=== PATIENT | male | born 1980 | race Caucasian/White ===

== ENCOUNTER 2022-11-24 08:23 | Emergency (ER) | payer BC ==
[~2022-11-24] VITALS: Ht 177.8 cm; Wt 86.2 kg
[2022-11-24 08:31] VITALS: BP 152/95
[2022-11-24] MEDS ORDERED: MORPHINE SULFATE 4 MG/ML SYR IVP ONE (08:45)
[2022-11-24] MEDS ORDERED: NACL 0.9% 1,000 ML IV ONE (08:45)
[2022-11-24] MEDS ORDERED: ONDANSETRON 4 MG/2 ML VIAL IVP ONE (08:45)
--- NOTE | 2022-11-24 09:01 | NUR ---
US AT BEDSIDE
--- NOTE | 2022-11-24 09:06 | NUR ---
42YO MALE PT C/O ACHING 10/10 UPPER ABD PAIN AND NAUSEA X3HRS. REPORTS SUDDEN CONSTANT ONSET W/ RADIATION TO BACK. RUQ TENDER TO TOUCH. STATES TAKING IBUPROFEN W/O RELIEF. DENIES V/D, CONSTIPATION, CHEST PAIN, SOB, FEVER OR CHILLS. PT AAOX4, IN VISIBLE DISTRESS AND GUARDING ABD. ON GARAGEMAN. HOB POSITIONED PER COMFORT. HX:DENIES NKA
[2022-11-24 09:36] LABS: ALBUMIN 4.3 g/dL (3.4-5.0); CARBON DIOXIDE 28.5 mmol/L (21-32); CREATININE 1.2 mg/dL (0.6-1.3); POTASSIUM 3.5 mmol/L (3.5-5.1); TOTAL BILIRUBIN 0.8 mg/dL (0.0-1.0)
--- NOTE | 2022-11-24 09:39 | NUR ---
states relief. pt at rest w/ eyes closed. on rn cardiac. bed at lowest position, bed rails upx2
[2022-11-24 09:41] LABS: BASOPHILS % (AUTO) 0.2 % (0.0-2.0); EOSINOPHILS # (AUTO) 0.1 K/uL (0-0.4); EOSINOPHILS % (AUTO) 1.3 % (0.0-4.0); HEMATOCRIT 47.5 % (36-52); HEMOGLOBIN 16.8 g/dL (12.0-18.0); LYMPHOCYTES # (AUTO) 3.3 K/uL (2.0-11.5); LYMPHOCYTES % (AUTO) 36.8 % (20.5-51.1); MEAN CORPUSCULAR HEMOGLOBIN 32 pg (27-31); MEAN CORPUSCULAR HGB CONC 35 g/dL (33-37); MEAN CORPUSCULAR VOLUME 88.9 fL (80-94); MONOCYTES # (AUTO) 0.5 K/uL (0.8-1.0); MONOCYTES % (AUTO) 5.6 % (1.7-9.3); NEUTROPHILS % (AUTO) 56.1 % (42.2-75.2); PLATELET COUNT (AUTO) 239 K/uL (140-450); RED BLOOD CELL COUNT(AUTO) 5.34 MIL/uL (4.20-6.10); RED CELL DISTRIBUTION WIDTH 12.9 % (11.6-13.7); WHITE BLOOD COUNT (AUTO) 8.9 K/uL (4.8-10.8)
[2022-11-24] MEDS ORDERED: IBUP-2213 PO (09:49)
[2022-11-24] MEDS ORDERED: ONDA-188 PO (09:49)
[2022-11-24] MEDS ORDERED: ACET-9525 PO (09:49)
--- NOTE | 2022-11-24 10:07 | NUR ---
IV removed, catheter intact and site benign. Applied folded 4x4 gauze and tape to stop bleeding.
[2022-11-24 10:08] VITALS: BP 116/60
--- NOTE | 2022-11-24 10:08 | NUR ---
Patient discharged with v/s stable. Written and verbal after care instructions FOR CHOLELITHIASIS given and explained. Patient alert, oriented and verbalized understanding of instructions. Ambulatory with steady gait. All questions addressed prior to discharge. ID band removed. Patient advised to follow up with PMD. Rx of HYDROCODONE, IBUPROFEN AND ZOFRAN given. Opportunity to ask questions provided and answered.
--- NOTE | 2022-11-24 10:14 | NUR ---
The patient's care was reviewed and supervised by [place] 05 GUALBERTO, RN.
== END 2022-11-24 10:08 | disposition home or self-care (01) ==
LOC: MED 08:23
DX: K80.20 Calculus of gallbladder without cholecystitis without obstruction (principal)
CPT/HCPCS: 36415; 76705; 80053; 83690; 85025; 96361; 96374; 96375; 99285; J2270; J2405; Q0092

== ENCOUNTER 2023-03-22 01:30 | Emergency (ER) | payer SELFPAY ==
[~2023-03-22] VITALS: Ht 172.7 cm; Wt 104.3 kg
[~2023-03-22 01:30] MED LIST: ACET-9525 PO; IBUP-2213 PO; ONDA-188 PO
[2023-03-22] MEDS ORDERED: CIPR7.5S OT (05:16)
[2023-03-22] MEDS ORDERED: AMOX1TAB8 PO (05:16)
[2023-03-22] MEDS ORDERED: IBUP-2213 PO (05:16)
--- NOTE | 2023-03-22 06:02 | NUR ---
Patient discharged with v/s stable. Written and verbal after care instructions given and explained. Patient alert, oriented and verbalized understanding of instructions. Ambulatory with steady gait. All questions addressed prior to discharge. ID band removed. Patient advised to follow up with PMD. Rx of AUGMENTIN, EAR DROPS, IBUPROFEN given. Patient educated on indication of medication including possible reaction and side effects. Opportunity to ask questions provided and answered.
[2023-03-22 06:04] VITALS: BP 134/76
== END 2023-03-22 05:24 | disposition home or self-care (01) ==
LOC: MED 01:30 → MERGE 01:30 → MED 05:24
DX: H92.02 Otalgia, left ear (principal)
CPT/HCPCS: 99283

== ENCOUNTER 2024-01-30 03:30 | Emergency (ER) | payer BC, MEDICAID ==
[~2024-01-30] VITALS: Ht 172.7 cm; Wt 99.8 kg
[~2024-01-30 03:30] MED LIST changes: +AMOX1TAB8 PO; +CIPR7.5S OT
[2024-01-30 03:35] VITALS: BP 151/89; PULSE 71; RESP 19; TEMP 98; O2SAT 97
[2024-01-30] MEDS: KETOROLAC 30 MG/ML VIAL IVP ONE (04:34)
[2024-01-30] MEDS: NACL 0.9% 1,000 ML IV ONE (04:34)
[2024-01-30 04:35] LABS: BASOPHILS % (AUTO) 0.2 % (0.0-2.0); EOSINOPHILS # (AUTO) 0.2 K/uL (0-0.4); EOSINOPHILS % (AUTO) 1.9 % (0.0-4.0); HEMATOCRIT 49.1 % (36-52); HEMOGLOBIN 17.6 g/dL (12.0-18.0); LYMPHOCYTES # (AUTO) 3.3 K/uL (2.0-11.5); LYMPHOCYTES % (AUTO) 33.4 % (20.5-51.1); MEAN CORPUSCULAR HEMOGLOBIN 32 pg (27-31); MEAN CORPUSCULAR HGB CONC 36 g/dL (33-37); MEAN CORPUSCULAR VOLUME 89.6 fL (80-94); MONOCYTES % (AUTO) 10.2 % (1.7-9.3); NEUTROPHILS # (AUTO) 5.4 K/uL (1.8-7.7); NEUTROPHILS % (AUTO) 54.3 % (42.2-75.2); PLATELET COUNT (AUTO) 217 K/uL (140-450); RED BLOOD CELL COUNT(AUTO) 5.48 MIL/uL (4.20-6.10); RED CELL DISTRIBUTION WIDTH 13.1 % (11.6-13.7); WHITE BLOOD COUNT (AUTO) 9.9 K/uL (4.8-10.8)
[2024-01-30 04:35] LABS: APPEARANCE,URINE CLEAR (CLEAR); BILIRUBIN,URINE NEGATIVE (NEGATIVE); BLOOD, URINE TRACE-I (NEGATIVE); COLOR,URINE YELLOW (YELLOW); LEUKOCYTE ESTERASE ,URINE NEGATIVE (NEGATIVE); NITRITE, URINE NEGATIVE (NEGATIVE); PROTEIN,URINE NEGATIVE (NEGATIVE); UGLUCOSE NEGATIVE (NEGATIVE); UROBILINOGEN,URINE 0.2 EU/dL (0.2 - 1)
[2024-01-30 04:44] LABS: ANION GAP 12.6 (8-16); CALCIUM 8.9 mg/dL (8.5-10.1); CARBON DIOXIDE 27.9 mmol/L (21-32); POTASSIUM 3.5 mmol/L (3.5-5.1)
[2024-01-30 04:50] LABS: BACTERIA,URINE 10-30 (MOD) /HPF (None Seen); MUCUS,URINE 1+ /LPF (None Seen); RBC,URINE 0-5 /HPF (0-5); SQUAMOUS EPITHELIAL CELL,UR 0-3 (FEW) /LPF (0-3 (FEW)); WBC,URINE 0-5 /HPF (0-5)
[2024-01-30 04:52] LABS: ALBUMIN 3.7 g/dL (3.4-5.0); BILIRUBIN,DIRECT 0.1 mg/dL (0.0-0.3); TOTAL BILIRUBIN 0.6 mg/dL (0.0-1.0); TOTAL PROTEIN, SERUM 7.1 g/dL (6.4-8.2)
[2024-01-30] MEDS ORDERED: CIPR500T4 PO (05:29)
== END 2024-01-30 05:36 | disposition home or self-care (01) ==
LOC: MED 03:30
DX: N39.0 Urinary tract infection, site not specified (principal); Z79.1 Long term (current) use of non-steroidal anti-inflammatories (NSAID); Z79.899 Other long term (current) drug therapy
CPT/HCPCS: 36415; 74176; 80048; 80076; 81001; 82150; 83690; 85025; 96361; 96374; 99285; J1885; J7030

== ENCOUNTER 2024-05-21 01:30 | Emergency (ER) | payer SELFPAY ==
[~2024-05-21] VITALS: Ht 170.2 cm; Wt 95.3 kg
[~2024-05-21 01:30] MED LIST changes: +CIPR500T4 PO
[2024-05-21 01:34] VITALS: BP 158/106; PULSE 61; RESP 18; TEMP 98; O2SAT 99
[2024-05-21 02:11] LABS: BASOPHILS % (AUTO) 0.2 % (0.0-2.0); EOSINOPHILS # (AUTO) 0.2 K/uL (0-0.4); EOSINOPHILS % (AUTO) 1.8 % (0.0-4.0); HEMATOCRIT 49.9 % (36-52); HEMOGLOBIN 17.6 g/dL (12.0-18.0); LYMPHOCYTES # (AUTO) 5.4 K/uL (2.0-11.5); MEAN CORPUSCULAR HEMOGLOBIN 32 pg (27-31); MEAN CORPUSCULAR HGB CONC 35 g/dL (33-37); MEAN CORPUSCULAR VOLUME 91.8 fL (80-94); MONOCYTES % (AUTO) 8.9 % (1.7-9.3); NEUTROPHILS # (AUTO) 4.2 K/uL (1.8-7.7); NEUTROPHILS % (AUTO) 39.1 % (42.2-75.2); PLATELET COUNT (AUTO) 234 K/uL (140-450); RED BLOOD CELL COUNT(AUTO) 5.43 MIL/uL (4.20-6.10); RED CELL DISTRIBUTION WIDTH 13.4 % (11.6-13.7); WHITE BLOOD COUNT (AUTO) 10.8 K/uL (4.8-10.8)
[2024-05-21 02:19] LABS: ANION GAP 5.6 (8-16); CALCIUM 9.6 mg/dL (8.5-10.1); CARBON DIOXIDE 31.1 mmol/L (21-32); CREATININE 1.2 mg/dL (0.6-1.3); POTASSIUM 3.7 mmol/L (3.5-5.1)
[2024-05-21 02:34] LABS: ALBUMIN 3.9 g/dL (3.4-5.0); BILIRUBIN,DIRECT 0.1 mg/dL (0.0-0.3); TOTAL BILIRUBIN 0.5 mg/dL (0.0-1.0); TOTAL PROTEIN, SERUM 7.4 g/dL (6.4-8.2)
[2024-05-21 02:39] LABS: APPEARANCE,URINE CLEAR (CLEAR); BILIRUBIN,URINE NEGATIVE (NEGATIVE); BLOOD, URINE NEGATIVE (NEGATIVE); COLOR,URINE YELLOW (YELLOW); LEUKOCYTE ESTERASE ,URINE NEGATIVE (NEGATIVE); NITRITE, URINE NEGATIVE (NEGATIVE); PROTEIN,URINE NEGATIVE (NEGATIVE); UGLUCOSE NEGATIVE (NEGATIVE); UROBILINOGEN,URINE 0.2 EU/dL (0.2 - 1)
[2024-05-21] MEDS: FAMOTIDINE 20 MG TAB PO ONE (02:51)
[2024-05-21] MEDS: ALUMINUM HYD/MAG/SIMETHICONE 30 ML UDC PO ONE (02:51)
[2024-05-21] MEDS: KETOROLAC 30 MG/ML VIAL IM ONE (03:34)
[2024-05-21] MEDS: METOCLOPRAMIDE 10 MG/2 ML INJ VIAL IM ONE (03:34)
[2024-05-21] MEDS ORDERED: ONDA-188 PO (04:51)
[2024-05-21] MEDS ORDERED: IBUP-2213 PO (04:51)
[2024-05-21 04:58] VITALS: BP 129/96; PULSE 85; RESP 20; TEMP 98; O2SAT 99
== END 2024-05-21 04:58 | disposition home or self-care (01) ==
LOC: MED 01:30
DX: K80.70 Calculus of gallbladder and bile duct without cholecystitis without obstruction (principal); Z79.899 Other long term (current) drug therapy
CPT/HCPCS: 36415; 76705; 80048; 80076; 81003; 83690; 85025; 96372; 99285; J1885; J2765; Q0092